=== PATIENT | female | born 1995 | race African-American/Black ===

== ENCOUNTER 2017-05-17 10:00 | Emergency (ER) | payer OTHER ==
[~2017-05-17] VITALS: Ht 167.6 cm; Wt 104.1 kg
[2017-05-17 10:45] LABS: HEMATOCRIT 33.1 % (36.0-46.0); HEMOGLOBIN 10.5 G/DL (11.9-15.5); MCH 25.7 PG (29.0-34.0); MCHC 31.7 G/DL (30.0-36.0); MCV 80.9 FL (83-99); PLATELET COUNT 168 K/uL (156-360); RBC DIS.WIDTH-CV 16.6 % (11.8-14.6); RBC DIS.WIDTH-SD 49.1 % (39-53); RED BLOOD COUNT 4.09 M/uL (3.80-5.20)
[2017-05-17 10:56] LABS: ALBUMIN 3.9 g/dL (3.2-4.8); CHLORIDE 105 mEq/L (99-109); POTASSIUM 3.4 mEq/L (3.7-5.4); SODIUM 139 mEq/L (136-147)
[2017-05-17 10:58] LABS: GLUCOSE 93 mg/dL (70-99)
[2017-05-17 10:59] LABS: TOTAL PROTEIN 7.2 g/dL (6.4-8.3)
[2017-05-17 11:00] LABS: TOTAL BILIRUBIN 0.6 mg/dL (0.0-1.0)
[2017-05-17 11:02] LABS: ALKALINE PHOSPHATASE 69 IU/L (3-129); CREATININE 0.9 mg/dL (0.6-1.3)
[2017-05-17 11:03] LABS: UREA NITROGEN (BUN) 5 mg/dL (9-23)
[2017-05-17 11:04] LABS: AST (GOT) 30 IU/L (2-34)
[2017-05-17 11:05] LABS: ALT (GPT) 18 IU/L (3-49); LIPASE 10 U/L (1.0-51.0)
[2017-05-17 11:12] LABS: GFR ESTIMATE (CALCULATED) > 59 mL/min/
[2017-05-17 11:13] LABS: QUANTITATIVE HCG < 4.0 MIU/ML
[2017-05-17 11:13] LABS: APPEARANCE SL.HAZY ((CLEAR)); BILIRUBIN NEGATIVE; BLOOD NEGATIVE; COLOR YELLOW ((YELLOW)); GLUCOSE (STRIP) NEGATIVE; KETONES NEGATIVE; LEUKOCYTES SMALL; NITRITE NEGATIVE; PROTEIN (STRIP) NEGATIVE; SPECIFIC GRAVITY 1.014 (1.000-1.030)
[2017-05-17 11:32] LABS: EPITHELIAL CELLS 1+ /HPF; MUCUS 1+ /LPF
[2017-05-17 11:33] LABS: BACTERIA RARE /HPF; RED BLOOD CELLS NONE SEEN /HPF (0-5)
[2017-05-17] MEDS ORDERED: CIPRO500 MG PO (12:21)
[2017-05-17 12:27] VITALS: BP 131/71
== END 2017-05-17 12:29 | disposition home or self-care (01) ==
LOC: EME 10:00
DX: N39.0 Urinary tract infection, site not specified (principal); K80.50 Calculus of bile duct without cholangitis or cholecystitis without obstruction; K59.00 Constipation, unspecified; Z98.84 Bariatric surgery status
CPT/HCPCS: 74176; 80053; 81003; 83690; 84702; 85027; 87086; 99281; 99284